=== PATIENT | female | born 1955 | race Caucasian/White ===

== ENCOUNTER 2023-04-24 20:12 | Emergency (ER) | payer MEDICARE ==
[~2023-04-24] VITALS: Ht 152.4 cm; Wt 81.6 kg
[2023-04-24] MEDS ORDERED: KETOROLAC TROMETHAMINE 30 MG/ML VIAL IM STA (20:46)
[2023-04-24] MEDS ORDERED: DEXAMETHASONE SOD PHOS 10 MG/1 ML VIAL IM ONE (21:00)
[2023-04-24] MEDS ORDERED: ORPHENADRINE CITRATE 30 MG/ML VIAL IM ONE (21:00)
[2023-04-24 22:05] VITALS: BP 165/93; O2SAT 97
== END 2023-04-24 21:55 | disposition home or self-care (01) ==
LOC: ER 20:15
DX: M54.50 Low back pain, unspecified (principal); G89.29 Other chronic pain; E03.9 Hypothyroidism, unspecified; Z87.442 Personal history of urinary calculi
CPT/HCPCS: 99283; J1100; J1885; J2360